=== PATIENT | male | born 1990 | race American Indian/Alaskan Native ===

== ENCOUNTER 2016-07-02 19:08 | Emergency (ER) | payer SELFPAY ==
[2016-07-03 00:37] VITALS: BP 147/94
--- NOTE | 2016-07-03 01:00 | Emergency Department Report ---
ED Male HPI - General Chief complaint: Urogenital-Male Stated complaint: YEAST INFECTION Time Seen by Provider: 07/03/16 00:27 Source: patient Mode of arrival: Ambulatory Limitations: No Limitations - History of Present Illness Initial comments: This is a 25-year-old male that presents with penile discharge past month. Patient describes the discharge as a clear discharge. Patient is concerned by gonorrhea chlamydia. He denied to sexual partner but is unaware of current partner. Patient denies any ulcers, dysuria, polyuria, fever or chills, lacerations, swelling or penile pain. He denies History of STDs. At this time the patient does not sit or ill in appearance. No signs of any distress noted. MD Complaint: penile discharge -: Gradual, month(s) (1) Radiation: none Severity scale (0 -10): 0 Improves with: none Worsens with: none - Related Data Allergies Allergy/AdvReac Type Severity Reaction Status Date / Time No Known Allergies Allergy Verified 07/02/16 20:15 ED Review of Systems ROS: Stated complaint: YEAST INFECTION Other details as noted in HPI Constitutional: denies: chills, fever Eyes: denies: eye pain, eye discharge, vision change ENT: denies: ear pain, throat pain Respiratory: denies: cough, shortness of breath, wheezing Cardiovascular: denies: chest pain, palpitations Endocrine: no symptoms reported Gastrointestinal: denies: abdominal pain, nausea, diarrhea Genitourinary: denies: urgency, dysuria Musculoskeletal: denies: back pain, joint swelling, arthralgia Skin: denies: rash, lesions Neurological: denies: headache, weakness, paresthesias Psychiatric: denies: anxiety, depression Hematological/Lymphatic: denies: easy bleeding, easy bruising ED Past Medical Hx - Past Medical History Previous Medical History?: No - Surgical History Past Surgical History?: No - Social History Smoking Status: Current Every Day Smoker Substance Use Type: None ED Physical Exam - General Limitations: No Limitations General appearance: alert, in no apparent distress - Head Head exam: Present: atraumatic, normocephalic - Eye Eye exam: Present: normal appearance - ENT ENT exam: Present: mucous membranes moist - Neck Neck exam: Present: normal inspection - Respiratory Respiratory exam: Present: normal lung sounds bilaterally. Absent: respiratory distress - Cardiovascular Cardiovascular Exam: Present: regular rate, normal rhythm. Absent: systolic murmur, diastolic murmur, rubs, gallop - GI/Abdominal GI/Abdominal exam: Present: soft, normal bowel sounds - Rectal Rectal exam: Present: deferred - Extremities Exam Extremities exam: Present: normal inspection - Back Exam Back exam: Present: normal inspection - Neurological Exam Neurological exam: Present: alert, oriented X3 - Psychiatric Psychiatric exam: Present: normal affect, normal mood - Skin Skin exam: Present: warm, dry, intact, normal color. Absent: rash ED Course Vital Signs 07/02/16 07/03/16 07/03/16 20:16 00:23 00:36 Temperature 98.5 F Pulse Rate 74 82 Respiratory 16 18 18 Rate Blood Pressure 145/90 Blood Pressure 147/94 [Left] O2 Sat by Pulse 100 99 98 Oximetry ED Medical Decision Making - Medical Decision Making Ed course: This is a 25-year-old male presents with penile discharge 1- patient received Rocephin 250 mg and azithromycin 1 g in the ED 2- I instructed the patient to follow-up with medical records in [facility] in 7-10 days for results of gonorrhea chlamydia 3- at this time the patient does not seem toxic or ill in appearance. 4- patient agrees to discharge plan. No further questions noted by the patient. 5- UA and gonorrhea chlamydia sent to lab. Critical care attestation.: If time is entered above; I have spent that time in minutes in the direct care of this critically ill patient, excluding procedure time. ED Disposition Clinical Impression: Penile discharge Disposition: DISCHARGED TO HOME OR SELFCARE Is pt being admited?: No Does the pt Need Aspirin: No Condition: Stable Additional Instructions: Follow-up with your primary care doctor in 3-5 days. If Symptoms worsen to report back to emergency room Come back to [facility] and 7 days for gonorrhea chlamydia results. Referrals: PRIMARY CARE, [Primary Care Provider] - 3-5 Days [facility] [Outside] - 3-5 Days [facility] [Outside] - 3-5 Days [facility] [Referring] - 3-5 Days Forms: Work/School Release Form(ED)
[2016-07-03] MEDS ORDERED: ROCEPHIN IM ONE (01:01)
[2016-07-03] MEDS ORDERED: ZITHROMAX PO ONE (01:01)
[2016-07-03] MEDS ORDERED: XYLOCAINE 1% MPF 5 mL INFILTRATI ONE (01:01)
[2016-07-03 01:08] LABS: Bacteria,Urine 1+ /HPF (Negative); Bilirubin,Urine NEG (Negative); Blood,Urine NEG (Negative); Ketones,Urine NEG (Negative); Leukocyte Esterase,Urine SM (Negative); Nitrite,Urine NEG (Negative); Protein,Urine <15 mg/dL mg/dL (Negative); Urobilinogen,Urine < 2.0 mg/dL (<2.0)
== END 2016-07-03 01:38 | disposition home or self-care (01) ==
LOC: ED 19:08
DX: R36.9 Urethral discharge, unspecified (principal); F17.200 Nicotine dependence, unspecified, uncomplicated
CPT/HCPCS: 81001; 87086; 87591; 96372; 99283; J0696